=== PATIENT | female | born 1935 | race Caucasian/White ===

== ENCOUNTER 2019-10-27 14:15 | Emergency (ER) | payer MEDICARE ==
[~2019-10-27] VITALS: Ht 175.3 cm; Wt 49.9 kg
[~2019-10-27 14:15] MED LIST: ACETAMINOPHEN500 MG PO; Prednisone20 MG PO; Voltaren100 GM TOP
[2019-10-27] MEDS ORDERED: Atarax10 MG PO (14:39)
== END 2019-10-27 19:00 | disposition home or self-care (01) ==
LOC: ER 14:15
DX: M54.5 Low back pain (principal); G89.29 Other chronic pain; Z88.5 Allergy status to narcotic agent; Z88.8 Allergy status to other drugs, medicaments and biological substances; Z91.048 Other nonmedicinal substance allergy status; I12.9 Hypertensive chronic kidney disease with stage 1 through stage 4 chronic kidney disease, or unspecified chronic kidney disease; N18.3 Chronic kidney disease, stage 3 (moderate); F03.90 Unspecified dementia, unspecified severity, without behavioral disturbance, psychotic disturbance, mood disturbance, and anxiety; G35 Multiple sclerosis; Z85.3 Personal history of malignant neoplasm of breast; Z79.899 Other long term (current) drug therapy
CPT/HCPCS: 72040; 72100; 99284-25